=== PATIENT | male | born 1970 | race American Indian/Alaskan Native ===

== ENCOUNTER 2018-03-14 03:51 | Emergency (ER) | payer OTHER ==
[2018-03-14 04:05] VITALS: BMI 37.3
[2018-03-14 04:07] VITALS: RESP 18; TEMP 98.2; O2SAT 99
--- NOTE | 2018-03-14 04:15 | ED PDOC ---
Arrival/HPI - General Chief Complaint: Eye Problem Time Seen by Provider: 03/14/18 04:02 Historian: Patient - History of Present Illness Narrative History of Present Illness (Text): 03/14/18 04:12 Blas Patton is a 48 year old male who presents to the ED complaining of left eye redness since yesterday. Patient states he rubbed his eye earlier in the day and developed redness to the eye. Patient denies any fever, vision changes, headache, dizziness, or any other complaints. Symptom Onset: Gradual Symptom Course: Unchanged Activities at Onset: Light Context: Home Past Medical History - Provider Review Nursing Documentation Reviewed: Yes - Psychiatric Hx Substance Use: No Family/Social History - Physician Review Nursing Documentation Reviewed: Yes Family/Social History: Unknown Family HX Smoking Status: Never Smoked Hx Alcohol Use: No Hx Substance Use: No Allergies/Home Meds Allergies/Adverse Reactions: Allergies No Known Allergies Allergy (Verified 03/14/18 04:04) Review of Systems - Physician Review All systems were reviewed & negative as marked: Yes - Review of Systems Constitutional: Normal. absent: Fevers Eyes: Other (+left eye redness) ENT: Normal Respiratory: Normal. absent: Cough Cardiovascular: Normal. absent: Chest Pain Gastrointestinal: Normal. absent: Diarrhea, Vomiting Genitourinary Male: Normal. absent: Dysuria, Frequency, Hematuria, Urinary Output Changes Musculoskeletal: Normal. absent: Back Pain, Neck Pain Skin: Normal. absent: Rash Neurological: Normal. absent: Headache, Dizziness Endocrine: Normal Hemo/Lymphatic: Normal Psychiatric: Normal Physical Exam Vital Signs Reviewed: Yes Vital Signs Temp Pulse Resp BP Pulse Ox 03/14/18 04:05 98.2 F 78 18 158/96 H 99 Temperature: Afebrile Blood Pressure: Normal Pulse: Regular Respiratory Rate: Normal Appearance: Positive for: Well-Appearing, Non-Toxic, Comfortable Pain Distress: None Mental Status: Positive for: Alert and Oriented X 3 - Systems Exam Head: Present: Atraumatic, Normocephalic Pupils: Present: PERRL Extroacular Muscles: Present: EOMI Conjunctiva: Present: Injected (Left eye conjunctival injection) Ears: Present: Normal, NORMAL TM, Normal Canal. No: Erythema, TM Bulging, Fluid, TM Perf Mouth: Present: Moist Mucous Membranes Pharnyx: Present: Normal. No: ERYTHEMA, EXUDATE, TONSILS ENLARGED, Peritonsilar Swelling, Uvular Deviation, Muffled/Hoarse Voice, Strider, Soft Palate/Uvular Edema Neck: Present: Normal Range of Motion Respiratory/Chest: Present: Clear to Auscultation, Good Air Exchange. No: Respiratory Distress, Accessory Muscle Use Cardiovascular: Present: Regular Rate and Rhythm, Normal S1, S2. No: Murmurs Abdomen: Present: Normal Bowel Sounds. No: Tenderness, Distention, Peritoneal Signs Neurological: Present: GCS=15, CN II-XII Intact, Speech Normal Skin: Present: Warm, Dry, Normal Color. No: Rashes Psychiatric: Present: Alert, Oriented x 3, Normal Insight, Normal Concentration Medical Decision Making ED Course and Treatment: 03/14/18 04:12 Impression: 48 year old male c/o left eye redness. Plan: -- Tobrex -- Reassess and disposition Progress Notes: Patient awake, alert, and in no acute distress. Discussed plan with patient. Patient verbalizes understanding and is agreeable with plan. All questions answered. Patient stable for discharge. - Scribe Statement The provider has reviewed the documentation as recorded by the Scribe Ly Taylor All medical record entries made by the Scribe were at my direction and personally dictated by me. I have reviewed the chart and agree that the record accurately reflects my personal performance of the history, physical exam, medical decision making, and the department course for this patient. I have also personally directed, reviewed, and agree with the discharge instructions and disposition. Disposition/Present on Arrival - Present on Arrival Any Indicators Present on Arrival: No History of DVT/PE: No History of Uncontrolled Diabetes: No Urinary Catheter: No History of Decub. Ulcer: No History Surgical Site Infection Following: None - Disposition Have Diagnosis and Disposition been Completed?: Yes Diagnosis: Conjunctivitis Disposition: HOME/ ROUTINE Disposition Time: 04:30 Patient Plan: Discharge Condition: GOOD Discharge Instructions (ExitCare): Conjunctivitis ([place]) (DC) Additional Instructions: Medication as prescribed( 2 drops to affected eye 4 times daily)/follow up with opthalmologist as needed Prescriptions: RX: Tobramycin 0.3% [Tobrex 0.3% Ophth Soln] 2 drop OS QID #1 bottle Referrals: Cm Mcdonald MD [Staff Provider] - Follow up with primary Forms: [employer] (Gabonese)
[2018-03-14] MEDS ORDERED: Tobramycin 0.3% OPHT SOLN OS STA (04:28)
[2018-03-14 04:55] VITALS: BP 150/87; PULSE 72
== END 2018-03-14 04:49 | disposition home or self-care (01) ==
LOC: ED 03:51
DX: H10.9 Unspecified conjunctivitis (principal)